=== PATIENT | female | born 1995 | race African-American/Black ===

== ENCOUNTER 2019-12-13 11:17 | Emergency (ER) | payer OTHER ==
[~2019-12-13] VITALS: Ht 160 cm; Wt 104.3 kg
[~2019-12-13 11:17] MED LIST: FLONASE 0.05%50 MCG NASAL; IRON325 PO; PHENERGAN 25 MG25 M1 PO; TRINATE TABLET1 TAB PO; VITAFOL-OB+DHA1 EACH PO
[2019-12-13 11:18] VITALS: BP 99/69
[2019-12-13] MEDS ORDERED: PATANOL5 ML OPHTHALMIC (12:02)
[2019-12-13] MEDS ORDERED: PREDNISONE 20 M20 MG PO (12:02)
== END 2019-12-13 12:07 | disposition home or self-care (01) ==
LOC: ER 11:17
DX: H10.13 Acute atopic conjunctivitis, bilateral (principal); J30.9 Allergic rhinitis, unspecified